=== PATIENT | female | born 1960 | race Hispanic/Latino ===

== ENCOUNTER 2017-03-26 07:15 | Day surgery (SDC) | payer OTHER ==
[2017-03-25 16:28] VITALS: BP 135/80
[~2017-03-26] VITALS: Ht 157.5 cm; Wt 120.0 kg
[2017-03-26] VITALS (17 sets, daily range): BP systolic 114–135; BP diastolic 61–84
[2017-03-26] MEDS: CLINDAMYCIN 900 MG/D5% WATER 50 ML IV SCH ×2 (06:00→10:33)
[~2017-03-26 07:15] MED LIST: DICLOFENAC PO
[2017-03-26] MEDS ORDERED: LACTATED RINGERS 1000ML 1,000 ML IV ONE (08:40)
[2017-03-26] MEDS ORDERED: CLINDAMYCIN PHOSPHATE 150 MG/ML 6ML VIAL ONE (09:32)
[2017-03-26] MEDS ORDERED: DEXAMETHASONE SOD PHOSPHATE 10MG/ML 1ML VIAL ONE ×2 (10:18→10:57)
[2017-03-26] MEDS ORDERED: LIDOCAINE PF 2% 5ML ABBOJECT ONE (10:18)
[2017-03-26] MEDS ORDERED: NEOSTIGMINE METHYLSULFATE 1MG/ML IV ONE (10:18)
[2017-03-26] MEDS ORDERED: MIDAZOLAM HCL 1 MG/ML 2ML VIAL ONE (10:18)
[2017-03-26] MEDS ORDERED: GLYCOPYRROLATE 0.2 MG/ML 5 ML VIAL ONE (10:18)
[2017-03-26] MEDS ORDERED: ONDANSETRON HCL 4 MG/2 ML VIAL ONE (10:18)
[2017-03-26] MEDS ORDERED: PROPOFOL 10 MG/ML 20ML VIAL IV ONE (10:18)
[2017-03-26] MEDS ORDERED: SUCCINYLCHOLINE 200MG/10ML SYR ONE (10:18)
[2017-03-26] MEDS ORDERED: FENTANYL CITRATE PF 50 MCG/1 ML 2ML VIAL ONE ×2 (10:19→11:07)
[2017-03-26] MEDS ORDERED: ESMOLOL HCL 10 MG/ML 10 ML VIAL ONE (11:09)
[2017-03-26] MEDS ORDERED: MEPERIDINE-PF 25 MG/ML SYG ONE ×2 (11:42→11:57)
[2017-03-26] MEDS ORDERED: KETOROLAC TROMETHAMINE 30MG/ML ONE (11:52)
== END 2017-03-26 14:20 | disposition home or self-care (01) ==
LOC: DAH 07:15
PROVIDERS: ATTEND Orthopaedic Surgery
DX: M65.841 Other synovitis and tenosynovitis, right hand (principal); Z90.49 Acquired absence of other specified parts of digestive tract; Z98.890 Other specified postprocedural states; Z88.0 Allergy status to penicillin; M19.90 Unspecified osteoarthritis, unspecified site
CPT/HCPCS: 25000; A4649; A4930; A6204; J0330; J1100 ×2; J1885; J2001; J2175 ×2; J2250; J2405; J2704; J2710; J3010 ×2; J3490 ×3; J7030; J7120

== ENCOUNTER → 2018-07-07 | Outpatient (CLI) | payer OTHER ==
[~2018-07-07] VITALS: Ht 5.1 cm; Wt 116.1 kg
== END | disposition home or self-care (01) ==
LOC: DTH 13:50
PROVIDERS: ATTEND Surgery
DX: E66.09 Other obesity due to excess calories (principal); E11.9 Type 2 diabetes mellitus without complications
CPT/HCPCS: 97802

== ENCOUNTER 2018-07-22 08:42 | Day surgery (SDC) | payer OTHER ==
[~2018-07-22] VITALS: Ht 157.5 cm; Wt 114.3 kg
[2018-07-22 09:50] VITALS: BP 146/86
[2018-07-22 10:06] LABS: CREATININE 0.7 mg/dL (0.5-1.5)
[2018-07-22] MEDS ORDERED: METF-444 PO (10:17)
[2018-07-22] MEDS ORDERED: POTA99TA21 PO (10:17)
[2018-07-22] MEDS ORDERED: FURO20TA6 PO (10:17)
[2018-07-22] MEDS ORDERED: ENAL2.5T PO (10:17)
[2018-07-22] MEDS ORDERED: PROPOFOL 1000 MG/100 ML 100 ML IV ONE (10:17)
[2018-07-22] MEDS ORDERED: SERT25TA PO (10:18)
[2018-07-22 10:35] LABS: BASOPHILS % (AUTO) 1.3 % (0.0-5.0); EOSINOPHILS % (AUTO) 2.8 % (0.0-8.0); HEMATOCRIT 40.7 % (36-48); LYMPHOCYTES % (AUTO) 33.1 % (21.0-51.0); MEAN CORPUSCULAR HEMOGLOBIN 30.5 pg (27.0-33.0); MEAN CORPUSCULAR HGB CONC 33.9 g/dL (32.0-36.0); NEUTROPHILS % (AUTO) 57.8 % (40.0-77.0); RED BLOOD CELL COUNT(AUTO) 4.53 MIL/uL (4.00-5.50); WHITE BLOOD COUNT (AUTO) 5.6 K/uL (4.8-10.8)
[2018-07-22] MEDS ORDERED: SODIUM CHLORIDE 0.9% 1000ML 1,000 ML IV ONE (10:37)
[2018-07-22 11:19] VITALS: BP 138/71
[2018-07-22 11:24] VITALS: BP 133/79
[2018-07-22 11:29] VITALS: BP 135/71
[2018-07-22] MEDS ORDERED: LIDOCAINE HCL 1% 20 ML VIAL ONE (11:29)
[2018-07-22 11:30] LABS: PLATELET COUNT (AUTO) 130 K/uL (130-400)
[2018-07-22 11:34] VITALS: BP 138/75
[2018-07-22 11:39] VITALS: BP 139/80
== END 2018-07-22 12:00 | disposition home or self-care (01) ==
LOC: DAH 08:42
PROVIDERS: ATTEND Surgery
DX: Z12.11 Encounter for screening for malignant neoplasm of colon (principal); E66.01 Morbid (severe) obesity due to excess calories; M79.7 Fibromyalgia; I10 Essential (primary) hypertension; E10.9 Type 1 diabetes mellitus without complications; Z98.890 Other specified postprocedural states; Z79.84 Long term (current) use of oral hypoglycemic drugs; Z79.899 Other long term (current) drug therapy; Z88.0 Allergy status to penicillin; Z68.41 Body mass index [BMI] 40.0-44.9, adult
CPT/HCPCS: 36415; 43235; 45378; 80048; 82948; 85025; 93005; A4606; J2704; J7030

== ENCOUNTER → 2022-02-28 | Outpatient (CLI) | payer BC ==
[~2022-02-28] MED LIST changes: +ENAL2.5T16 PO; +FURO20TA6 PO; +METF-444 PO; +POTA99TA26 PO; +SERT25TA PO
== END | disposition home or self-care (01) ==
LOC: RAH 08:05
PROVIDERS: ATTEND Family Medicine
DX: Z12.31 Encounter for screening mammogram for malignant neoplasm of breast (principal)
CPT/HCPCS: 77067

== ENCOUNTER 2024-09-16 17:43 | Emergency (ER) | payer BC ==
[~2024-09-16] VITALS: Ht 157.5 cm; Wt 70.3 kg
[~2024-09-16 17:43] MED LIST changes: -ENAL2.5T16 PO; +ENAL2.5T71 PO
--- NOTE | 2024-09-16 18:56 | NUR ---
PENDING GFR RESULTS, IV SITE, & CONSENT FOR CT EXAM.
[2024-09-16] MEDS: ondanSETRON 4MG INJ IVP STA (19:15)
[2024-09-16] MEDS: morPHINE 2 MG SYG IVP STA (19:16)
[2024-09-16 19:24] LABS: BASOPHILS # (AUTO) 0.03 K/uL (0.00-0.20); BASOPHILS % (AUTO) 0.6 % (0.0-5.0); EOSINOPHILS % (AUTO) 1.9 % (0.0-8.0); HEMATOCRIT 35.7 % (36-48); IMMATURE GRANULOCYTE ABSOLUTE 0.01 K/uL (0-1); LYMPHOCYTES # (AUTO) 1.6 K/uL (1.0-4.8); MEAN CORPUSCULAR HEMOGLOBIN 29.9 pg (27.0-33.0); MEAN CORPUSCULAR HGB CONC 32.2 g/dL (32.0-36.0); MEAN CORPUSCULAR VOLUME 92.7 fL (79-99); MONOCYTES # (AUTO) 0.3 K/uL (0.1-1.0); MONOCYTES % (AUTO) 6.5 % (3.0-13.0); NEUTROPHILS # (AUTO) 3.1 K/uL (1.8-7.7); NEUTROPHILS % (AUTO) 59.8 % (40.0-77.0); PLATELET COUNT (AUTO) 188 K/uL (130-400); RED BLOOD CELL COUNT(AUTO) 3.85 MIL/uL (4.00-5.50); RED CELL DISTRIBUTION WIDTH 13.8 % (11.0-15.5); WHITE BLOOD COUNT (AUTO) 5.2 K/uL (4.8-10.8)
[2024-09-16 19:30] LABS: CREATININE 0.8 mg/dL (0.5-1.0); POTASSIUM 4.6 mmol/L (3.5-5.1)
[2024-09-16 19:34] LABS: ALBUMIN 3.6 g/dL (3.5-5.0); BILIRUBIN,DIRECT 0.1 mg/dL (0.0-0.3); BILIRUBIN,TOTAL 0.3 mg/dL (0.2-1.0)
[2024-09-16] MEDS ORDERED: IOHEXOL-350 75 ML VIAL IV ONE (20:36)
--- NOTE | 2024-09-16 21:04 | HMCIMG ---
Exam Type: CT ABDOMEN/PELVIS W/CONTRAST Clinical Information: ABDOMINAL PAIN Comparison: None Contrast: 100 cc's Isovue 370 IV, no complications or adverse reactions CT Dose Index (CTDI): 31.60 mGy Dose Length Product (DLP): 1740.80 total mGy-cm Findings: No evidence of nephro or ureterolithiasis is found. No hydronephrosis or ureteral dilatation is seen. The lung bases are clear. Postbariatric changes of the stomach are seen. The spleen is unremarkable. It is not enlarged. The pancreas shows normal anatomy. It is not fatty replaced. It shows no lesions. The pancreatic duct is not dilated. The gallbladder is surgically absent. The adrenal glands are unremarkable. There is no enlargement. No lesions are noted. The liver is unremarkable. It shows no focal masses. The appendix is unremarkable. It shows no evidence of inflammation. No appendicolith is seen. The small bowel is unremarkable. There is no evidence of dilatation to suggest obstruction. No evidence of adynamic ileus is seen. There is no small bowel wall thickening to suggest enteritis. The colon is unremarkable. The urinary bladder is unremarkable. There is no wall thickening to suggest tumor or inflammation. There are no intraluminal calculi. There are no diverticula. There is no evidence of chronic bladder outlet obstruction. There is no evidence of urinary bladder distention to suggest urinary retention. The other pelvic structures are unremarkable. The bony and vascular structures are unremarkable for the patient's age. IMPRESSION: No acute pathology This study was performed using dose reduction techniques to include automated exposure control and/or adjustment of the mA and/or kV according to patient size.
--- NOTE | 2024-09-16 21:13 | ERN ---
ED Note History of Present Illness Stated Complaint: ABDOMINAL PAIN X4 DAYS Chief Complaint: Abdominal Pain Time Seen by MD: 17:53 Time Seen by Midlevel: 17:55 Dictation: 64-YEAR-OLD FEMALE WITH A HISTORY OF UMBILICAL HERNIA AND LEFT INGUINAL HERNIA COMING IN COMPLAINING OF PAIN TO HER HERNIA AREAS AFTER DOING YD WORK. PATIENT IS CONCERNED THAT SHE HAS HAD AN OBSTRUCTION. DENIES ANY NAUSEA OR VOMITING OR DIARRHEA. Allergies: Coded Allergies: Penicillins (Unverified Allergy, Unknown, 03/25/17) Home Meds Reported Medications Sertraline HCl (Zoloft) 25 Mg Tablet, 25 MG PO HS, TAB 07/22/18 Metformin HCl (Metformin HCl) 500 Mg Tablet, 500 MG PO DAILY, TAB 07/22/18 Furosemide (Lasix 20Mg Tab) 20 Mg Tablet, 20 MG PO DAILY, TAB 07/22/18 Potassium Gluconate (Potassium) 99 Mg Tablet, 99 MG PO DAILY, TAB 07/22/18 Enalapril Maleate (Enalapril Maleate) 2.5 Mg Tablet, 2.5 MG PO DAILY, TAB 07/22/18 [Diclofenac] No Conflict Check, 50 MG PO NEEDED PRN for FOR PAIN 03/25/17 Past Medical History Past Medical History: Depression Additional Past Medical Hx: X2 ABDOMINAL HERNIA Surgical History: Hysterectomy, Cholecystectomy, Review of System Dictation CONSTITUTIONAL: NEGATIVE FOR FEVER,CHILLS, AND WEIGHT LOSS EYES: NEGATIVE FOR INJURY, PAIN,REDNESS, AND DISCHARGE ENT: NEGATIVE FOR INJURY,PAIN OR SWELLING CARDIOVASCULAR: NEGATIVE FOR CHEST PAIN, PALPITATIONS, AND EDEMA RESPIRATORY: NEGATIVE FOR SHORTNESS OF BREATH, COUGH, AND WHEEZING, ABDOMEN/GI: POSITIVE FOR ABDOMINAL PAIN, NO NAUSEA, NO VOMITING, NO DIARRHEA, AND NO CONSTIPATION BACK: NEGATIVE FOR INJURY AND PAIN : NEGATIVE FOR INJURY, BLEEDING AND DISCHARGE MS/EXTREMITY: NEGATIVE FOR INJURY AND DEFORMITY SKIN: NEGATIVE FOR RASH, AND DISCOLORATION NEURO: NEGATIVE FOR HEADACHE, WEAKNESS, NUMBNESS, TINGLING, AND SEIZURE PSYCH: NEGATIVE FOR SUICIDE IDEATION, HOMICIDAL IDEATION, AND HALLUCINATIONS Review of Systems: was completed Initial Vital Sign VS Vital Signs Date Time Temp Pulse Resp B/P (MAP) Pulse Ox O2 Delivery O2 Flow Rate FiO2 09/16/24 17:44 98.6 100 14 130/67 99 Room Air 0 09/16/24 18:00 21 Physical Exam Dictation GENERAL: AWAKE, ALERT, NAD HEAD/FACE: NORMOCEPHALIC, ATRAUMATIC EYES: PERRL, EOMI, VISION AT BASELINE ENT: ORAL CAVITY CLEAR, TMS CLEAR, NO SIGNS OF INFECTION NECK: TRACHEA MIDLINE, SUPPLE, NO NUCHAL RIGIDITY CARDIOVASCULAR: RRR, NORMAL S1/S2, NO MRGS, NO JVD RESPIRATORY: CTAB, NO RESPIRATORY DISTRESS, NO RALES OR WHEEZES ABDOMEN: SOFT, NON-TENDER, NON-DISTENDED, NORMAL BOWEL SOUNDS, NO GUARDING OR REBOUND. SKIN: WARM, DRY, NORMAL TURGOR, NO RASH MS/EXTREMITY: PULSES EQUAL, NO CYANOSIS, NEUROVASCULAR INTACT, FROM NEURO: COAX4, GCS 15, STRENGTH 5/5, CN 2-12 INTACT, NORMAL CEREBELLAR EXAM, NORMAL GAIT, PSYCH: NORMAL BEHAVIOR, MOOD, AND AFFECT NORMAL Results (Laboratory/Radiology) Laboratory/Radiology Laboratory Tests Test 09/16/24 18:57 White Blood Count 5.2 K/uL (4.8-10.8) Red Blood Count 3.85 MIL/uL (4.00-5.50) L Hemoglobin 11.5 g/dL (12.0-16.0) L Hematocrit 35.7 % (36-48) L Mean Corpuscular Volume 92.7 fL (79-99) Mean Corpuscular Hemoglobin 29.9 pg (27.0-33.0) Mean Corpuscular Hemoglobin Concent 32.2 g/dL (32.0-36.0) Red Cell Distribution Width 13.8 % (11.0-15.5) Platelet Count 188 K/uL (130-400) Mean Platelet Volume 11.3 fL (7.5-10.5) H Immature Granulocyte % (Auto) 0.2 % (0-1) Neutrophils (%) (Auto) 59.8 % (40.0-77.0) Lymphocytes (%) (Auto) 31.0 % (21.0-51.0) Monocytes (%) (Auto) 6.5 % (3.0-13.0) Eosinophils (%) (Auto) 1.9 % (0.0-8.0) Basophils (%) (Auto) 0.6 % (0.0-5.0) Neutrophils # (Auto) 3.1 K/uL (1.8-7.7) Lymphocytes # (Auto) 1.6 K/uL (1.0-4.8) Monocytes # (Auto) 0.3 K/uL (0.1-1.0) Eosinophils # (Auto) 0.10 K/uL (0.00-0.70) Basophils # (Auto) 0.03 K/uL (0.00-0.20) Absolute Immature Granulocyte (auto 0.01 K/uL (0-1) Nucleated Red Blood Cells 0.0 % (0.0-0.19) Sodium Level 143 mmol/L (136-145) Potassium Level 4.6 mmol/L (3.5-5.1) Chloride Level 108 mmol/L (101-111) Carbon Dioxide Level 30 mmol/L (21-32) Blood Urea Nitrogen 18 mg/dL (7-18) Creatinine 0.8 mg/dL (0.5-1.0) Glomerular Filtration Rate Calc 83 mL/min (>90) Random Glucose 80 mg/dL (70-105) Total Calcium 9.4 mg/dL (8.5-10.1) Total Bilirubin 0.3 mg/dL (0.2-1.0) Direct Bilirubin 0.1 mg/dL (0.0-0.3) Aspartate Amino Transf (AST/SGOT) 28 U/L (10-37) Alanine Aminotransferase (ALT/SGPT) 39 U/L (12-78) Alkaline Phosphatase 128 U/L (50-136) Troponin I High Sensitivity < 4 ng/L (4-50) L Total Protein 7.0 g/dL (6.0-8.3) Albumin 3.6 g/dL (3.5-5.0) Lipase 16 U/L (16-77) Labs Reviewed?: Yes EKG Comment: EKGS DONE AT 9:22 P.M.. SINUS RHYTHM, RATE OF 89 BEATS PER MINUTE. INFERIOR INFARCT, OLD. NO STEMI INTERPRETED BY ER MD CT Scan Comment: [place] [id number] [address] IMAGING REPORT Signed PATIENT: MARCELLE FOREMAN MR#: [id number] : 1960 SEX: F AGE: 64 LOCATION: ED ORDER 16 STATUS: REG ER REPORT#: [id number] SERVICE 14 REASON: ABDOMINAL PAIN ORDERING PHYSICIAN: RAYMUNDO FARNSWORTH NP PROCEDURE: ABD PEL W - CT ABDOMEN/PELVIS W/CONTRAST Exam Type: CT ABDOMEN/PELVIS W/CONTRAST Clinical Information: ABDOMINAL PAIN Comparison: None Contrast: 100 cc's Isovue 370 IV, no complications or adverse reactions CT Dose Index (CTDI): 31.60 mGy Dose Length Product (DLP): 1740.80 total mGy-cm Findings: No evidence of nephro or ureterolithiasis is found. No hydronephrosis or ureteral dilatation is seen. The lung bases are clear. Postbariatric changes of the stomach are seen. The spleen is unremarkable. It is not enlarged. The pancreas shows normal anatomy. It is not fatty replaced. It shows no lesions. The pancreatic duct is not dilated. The gallbladder is surgically absent. The adrenal glands are unremarkable. There is no enlargement. No lesions are noted. The liver is unremarkable. It shows no focal masses. The appendix is unremarkable. It shows no evidence of inflammation. No appendicolith is seen. The small bowel is unremarkable. There is no evidence of dilatation to suggest obstruction. No evidence of adynamic ileus is seen. There is no small bowel wall thickening to suggest enteritis. The colon is unremarkable. The urinary bladder is unremarkable. There is no wall thickening to suggest tumor or inflammation. There are no intraluminal calculi. There are no diverticula. There is no evidence of chronic bladder outlet obstruction. There is no evidence of urinary bladder distention to suggest urinary retention. The other pelvic structures are unremarkable. The bony and vascular structures are unremarkable for the patient's age. IMPRESSION: No acute pathology This study was performed using dose reduction techniques to include automated exposure control and/or adjustment of the mA and/or kV according to patient size. DICTATED BY: MICHAEL BELTRAN MD DATE: 09/16/242056 ELECTRONICALLY SIGNED BY: MICHAEL BELTRAN MD DATE: 09/16/242103 Close ED Course ED Course Orders Procedure Category Date Status Time Cbc With Differential LAB 09/16/24 Complete 18:15 Basic Metabolic Panel LAB 09/16/24 Complete 18:15 Urinalysis Profile LAB 09/16/24 Logged 18:15 Lipase LAB 09/16/24 Complete 18:15 Hepatic Function Panel LAB 09/16/24 Complete 18:15 Ct Abdomen/Pelvis CT 09/16/24 Resulted W/Contrast 18:15 Ondansetron 4mg Inj PHA 09/16/24 Complete (Zofran 4mg Inj) 18:15 Morphine 2mg Syg PHA 09/16/24 Complete (Morphine 2mg Syg) 18:15 Iohexol (Omnipaque) PHA 09/16/24 Complete 20:36 12 Lead Ekg Tracing- EKG 09/16/24 Complete Technical 21:12 Troponin I High LAB 09/16/24 Complete Sensitivity 21:12 Ketorolac PHA 09/16/24 Logged Tromethamine 15mg/Ml 21:32 Current Medications Medications (Trade) Dose Ordered Sig/Anupam Route PRN Reason Start Time Stop Time Status Last Admin Dose Admin Iohexol (Omnipaque) 75 ml STK-MED ONCE IV 09/16/24 20:36 09/16/24 20:37 DC Ketorolac Tromethamine (toRADol) 15 mg ONCE STAT IV 09/16/24 21:32 09/16/24 21:33 UNV Morphine Sulfate (morPHINE 2MG SYG) 2 mg ONCE STAT IVP 09/16/24 18:15 09/16/24 18:18 DC 09/16/24 19:16 Ondansetron HCl (zoFRAN 4MG INJ) 4 mg ONCE STAT IVP 09/16/24 18:15 09/16/24 18:18 DC 09/16/24 19:15 Vital Signs Date Time Temp Pulse Resp B/P (MAP) Pulse Ox O2 Delivery O2 Flow Rate FiO2 09/16/24 21:24 98.2 86 20 131/64 98 Room Air* 0 09/16/24 19:30 98.1 79 19 145/79 98 Room Air* 0 09/16/24 19:04 97.9 82 18 139/76 98 Room Air* 0 09/16/24 18:00 98.2 96 18 137/71 98 Room Air* 0 09/16/24 17:44 98.6 100 14 130/67 99 Room Air 0 Medical Decision Making MDM MDM: 64-YEAR-OLD FEMALE WITH A HISTORY OF UMBILICAL HERNIA AND LEFT INGUINAL HERNIA COMING IN COMPLAINING OF PAIN TO HER HERNIA AREAS AFTER DOING YD WORK. PATIENT IS CONCERNED THAT SHE HAS HAD AN OBSTRUCTION. DENIES ANY NAUSEA OR VOMITING OR DIARRHEA.CBC SHOWS NO LEUKOCYTOSIS, MILD NORMOCYTIC ANEMIA HEMOGLOBIN OF 11.5 AND HEMATOCRIT 35. NO THROMBOCYTOPENIA. CHEMISTRY UNREMARKABLE. CT SCAN WITHIN NORMAL RANGE. DIFFERENTIAL DIAGNOSIS: CONSTIPATED HERNIA, MUSCULOSKELETAL PAIN RATIONALE: TESTS CONSIDERED AND ORDERED SECONDARY TO SHARED DECISION MAKING INCLUDE: PREVIOUS OUTSIDE RECORDS REVIEWED: OLD ER VISITS. RISK OF COMPLICATION AND/OR MORBIDITY OR MORTALITY OF PATIENT MANAGEMENT: NONE MEDICATIONS-PER MEDICATION RECONCILIATION NEED FOR HOSPITALIZATION: PATIENT DOES NOT MEET CRITERIA FOR HOSPITALIZATION. NEED FOR EMERGENCY MAJOR/MINOR SURGERY: NO THERE ARE NO SOCIAL CONCERNS WITH THIS PATIENT. PRESCRIPTION DRUG MANAGEMENT PRESCRIPTIONS WILL INCLUDE SYMPTOMATIC CARE PATIENT'S PRIOR EXTERNAL MEDICAL RECORDS FROM OTHER ER VISITS WERE REVIEWED BY ME INDICATED. PRIOR TESTING AND RESULTS FROM PREVIOUS VISITS WERE REVIEWED. PRIOR TESTS WERE TAKEN INTO ACCOUNT WITH MEDICAL DECISION MAKING AND RESOURCE UTILIZATION, INDEPENDENT HISTORIAN/HISTORIANS WERE USED TO OBTAIN COMPLETE MEDICAL HISTORY. I INDEPENDENTLY INTERPRETED THE TEST THAT WERE PERFORMED, RESULTS WERE REVIEWED BY ME AND CONSIDERED FINDINGS ON RADIOLOGY IF ORDERED. MEDICAL MANAGEMENT AND EXAMINATION INTERPRETATION DISCUSSIONS WERE HAD BY ME WITH OTHER QUALIFIED HEALTHCARE PROFESSIONALS INDICATED FOR THE PATIENT'S CARE. DX & DISP Disposition: Discharge Departure Impression: Primary Impression: Abdominal pain Condition: Stable Additional Instructions: PLEASE FOLLOW UP WITH YOUR SPECIALIST. TAKE TYLENOL OR MOTRIN [id number] FOR PAIN CONTROL. RETURN TO THE HOSPITAL IF YOU HAVE ANY WORSENING SYMPTOMS LIKE FEVER, NAUSEA AND VOMITING. Referrals: SERGEY PEPPER (PCP) Time of Disposition: 21:13 I have reviewed the case, and I agree with, Diagnosis and Plan RAYMUNDO FARNSWORTH NP September 16, 2024 21:13
[2024-09-16 21:24] VITALS: BP 131/64; PULSE 86; RESP 20; TEMP 98.3; O2SAT 98
--- NOTE | 2024-09-16 21:24 | EKG ---
[facility] Test Date: 2024-09-16 Test Time: 21:22:09 Pat Name: MARCELLE FOREMAN Department: ED Room: Gender: F Behavioral Technician: [id number] : 1960 Requested By: RAYMUNDO FARNSWORTH Order Number: [id number] Reading MD: Win Patel Measurements Intervals [place] Rate: 89 P: 35 DE: 128 QRS: -20 QRSD: 88 T: 1 QT: 380 QTc: 462 Interpretive Statements Sinus rhythm Electronically Signed On 09-17-2024 13:17:16 CDT by Win Patel Please click the below link to view image of tracing.
[2024-09-16] MEDS: ketOROlac 15MG/ML VIAL (15MG/ML) IV STA (21:43)
== END 2024-09-16 21:53 | disposition home or self-care (01) ==
LOC: EDH 17:43
DX: R10.9 Unspecified abdominal pain (principal); F32.A Depression, unspecified; Z79.84 Long term (current) use of oral hypoglycemic drugs; Z79.899 Other long term (current) drug therapy; Z88.0 Allergy status to penicillin; Z90.49 Acquired absence of other specified parts of digestive tract; Z90.710 Acquired absence of both cervix and uterus
CPT/HCPCS: 99284; 74177; 96374; 96375; 80076; 84484; 80048; 83690; 85025; 36415; 93005; J1885; J2270; J2405; Q9967